=== PATIENT | male | born 2000 | race Caucasian/White ===

== ENCOUNTER 2023-10-14 11:34 | Outpatient (CLI) | payer BC, SELFPAY ==
--- NOTE | 2023-10-14 13:25 | W.ANESCHARGE ---
Anesthesia Charges Start Date/Time Anesthesia Start Date: 10/14/23 Anesthesia Start Time: 13:00 Stop Date/Time Anesthesia Stop Date: 10/14/23 Anesthesia Stop Time: 13:25
== END 2023-10-14 11:35 | disposition home or self-care (01) ==
LOC: OP CLINIC 11:35
PROVIDERS: PCP Physician Assistant; Visit Provider Internal Medicine Gastroenterology
DX: R19.7 Diarrhea, unspecified (principal); R10.13 Epigastric pain; K30 Functional dyspepsia; R11.2 Nausea with vomiting, unspecified
CPT/HCPCS: 00731; 43239; 88305; J2704

== ENCOUNTER 2024-03-20 14:46 | Emergency (ER) | payer BC, SELFPAY ==
[2024-03-20 14:48] VITALS: BP 154/84; PULSE 91; RESP 14; TEMP 37; O2SAT 97; BMI 27.1
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
--- OUTSIDE RECORDS SUMMARY | 2024-03-20 15:43 | XMS_ITS | Continuity of Care Document ---
Author Organization [facility] Address [address] [address] [place] [address] Phone Care Team Providers Care Assembler Wire Group Name Role Phone Ann Marie Lew CRNA Unavailable Unavailable Allergies, Adverse Reactions, Alerts Substance Reaction Status Criticality No Known Allergies Active No Inform ation Medications Medication Instructions Dosage Effective Dates (start - stop) Status Comments Advil 200 mg tablet take 1 tablet by ora l route every 6 hours as needed with food 200 MG - Active Tylenol 325 mg tablet take 2 tablet by o ral route every 6 hours as needed 650 MG - Active Protonix 40 mg tablet,delayed release take 1 tablet by oral route every day 30-60 minutes before breakfast - Active Procedures Procedure Date Colonoscopy Flex; Dx (sep Pro) 21 Offic/outpt E&m Estab Mod-hi 2 Routine Serum Collection Ugi Endo; W/bx 1/mx Level Iv-surg Path Gross/micro Advance Directives Directive Yes / No Effective Date File Name No Information Encounters Encounter Description Practice Location Reason(s) For Visit Diagnoses Date Provider Providers Copied on Encounter [facility], [address] [address], [place], [place], [id number], [place] tel:[phone] [facility][1] [facility] No Information Vipin Jesus. [address] [facility], [place], [place], [address], [place]. tel:[phone] Referring Provider: Henrietta Cueva MD, [address] [facility] [address], [place], [address] . tel:[phone] [facility], [address] [address], [place], [place], [address], [place] tel:[phone] [facility][1] [facility] Right lower quadrant painRight lower quadrant pain Dec- 1 Hammad Shrestha. [address] [facility], [address], [place], [place], [address], [place]. tel:[phone] Referring Provider: Marco KIDD, [address] [place], [address]. tel:[phone] Offic/outpt E&m Estab Mod-hi 2 [facility], [address] [address], [place], [place], [address], [place] tel:[phone] [facility] GI Symptoms or Concerns (chief complaint) RLQ abdominal painChange in bowel habits 1 Owen Barbosa. [address] [facility], [facility] [address], [place], [place], [address], [place]. tel:[phone] Referring Provider: Marco KIDD, [address] [place], [address]. tel:[phone] [facility], [address] [address], [place], [place], [address], [place] tel:[phone] [facility] No Information 1 Karlos Blanchard. [address] [facility], [facility] [address] [place], [place], [address], [place]. tel:[phone] [facility], [address] [address], [place], [place], [address], [place] tel:[phone] [facility][1] [facility] Acute gastric erosionDisease of stomach and duodenum, unspecified 1 Karlos Blanchard. [address] [facility], [facility] [address] [place], [place], [address], [place]. tel:[phone] Referring Provider: Marco KIDD, [address] [place] [address], [address]. tel:[phone] [facility], [address] [address], [place], [id number], tel:[phone] No Information No Information Referring Provider: Marco KIDD, [address] [place], [address]. tel:[phone] Family History Family Member Type Diagnosis Age At Onset Father Problem (finding) Heart Attack Problem (finding) Family history of Stoma ch Ulcers Problem (finding) Family history of malignant neoplasm of lung Immunizations Vaccine Date Status Comments influenza virus vaccine, unspecified formulation administered Note: [facility] bi-di rectional interface ; Source: Other Registry meningococcal oligosaccharid e (groups A, C, Y and W-135) diphtheria toxoid conjugate vaccine (MCV4O) administered Note: [facility] bi-direct ional interface ; Source: Other Registry tetanus toxoid, reduced diphtheria toxoid, and acellular pertussis vaccine, adsorbed administered Note: [facility] b i-directional interface ; Source: Other Registry Havrix pediatric administered Note: [facility] bi-directional interface ; Source: Other Registry meningococcal polysaccharide (groups A, C, Y and W-135) diphtheria toxoid conjugate vaccine (MCV4P) administered Note: [facility] bi-direct ional interface ; Source: Other Registry Havrix pediatric administered Note: [facility] bi-directional interface ; Source: Other Registry varicella virus vaccine administered Note : [facility] bi-directional interface ; Source: Other Registry Influenza, seasonal, injectable administe red Note: [facility] bi- directional interface ; Source: Other Registry Payers Payer name Insurance type Covered alliance party ID Authoriza tion(s) [employer] Of [facility] [id number] Social History Type Description Quantity Date Captured Comments Sex Male Smoking Status No Information Chief Complaint And Reason For Visit No Information Reason For Referral Reason For Referral No Information Plan Of Treatment Date Type Action Status Referral Ordered: Colonoscopy Appointment date/timeframe: 01/02/2021 ordered History Of Present Illness Encounter Date Complaint History Of Prese nt Illness GI Symptoms or Concerns Mr. Nicole son is a 20-year-old gentleman who had a clinic visit with me today for concerns regarding right lower quadrant pain.Mr. Talbert has been experiencing pain in the right lower quadrant region for the last 1 month or so. He reports the pain comes on typically with movement and activities, particularly if he stands up from a sitting position or twists around. This leads to significant throbbing pain in the area that makes him feel like his stomach is churning. He also gets a alvarez of blood into his head and he gets throbbing headaches as well as sinus pressure. He has had no nausea, vomiting, or changes in appetite related with these symptoms. Does report that he was constipated for a while, but now his bowel movements are a little bit loose than before.He has had testing for this through his primary care physician's office including LFTs, CBC, sedimentation rate, C-reactive protein, and lipase levels, all of which have been normal. He had an EGD done with Dr. Laura Functional Status Date Functional Assessmen t No Information Instructions Date Instruction Additional Infor alyssa 1. Check thyroid caceres el.2. Obtain colonoscopy with terminal ileum evaluation.3. Try lidocaine patch to help with pain.If colonoscopy shows an etiology for his symptoms, we will set up a followup visit for further treatment and management. However, if colonoscopy is negative, we would recommend that he continue followup with his primary care doctor for investigation into musculoskeletal causes of his symptoms and treatment as necessary. Related to RLQ abdominal pain Assessments Type Assessment Date No Information Patient Care Teams Name Effective Dates (start - stop) Status Members No Information
--- OUTSIDE RECORDS SUMMARY | 2024-03-20 15:44 | XMS_ITS | Patient Health Record ---
Author Organization [facility] Address [address] [place] [address] [address] [place] [address] Care Team Providers Care Real Estate Marketing Coordinator Name Role Phone Massimo Butler Primary Care Provider Melanie Mattson Unavailable Unavailable Allergies Allergen (clinical drug ingredient) Drug/Non Drug Allergy documented on EMR Reaction Allergy Type Onset Date Status Grape Seed anaphylaxis Drug Allergy Acti ve gabapentin Gabapentin excessive sedation Drug Allergy Active Reason For Referral No Information Medications Medication SIG (Take, Route, Frequency, Duration) Notes Start Date End Date Status Meloxicam 15 MG 1 tablet Orally with food Once a day for 30 days Active hydrOXYzine Pamoate 25 MG 2 capsules Ora lly every 6 hrs Active Social History Tobacco Use/Smoking: Question Answer Notes Additional Findings: Tobacco User e-Cigarette Alcohol Screen Question Answer Notes Did you have a drink containing alcohol in the p ast year? No Points 0 Interpretation Negative Problems Problem Type SNOMED Code ICD Code Onset Dates Problem Status W/U Status Risk Notes Problem Chronic pain (81999803) Other chronic pain (G89.29) Active confirmed Problem Cervical spondylosis without myelopathy (420609846) Spondylosis without myelopathy or radiculopathy, cervical region (M47.812) Active confirmed Problem Pain in thoracic spine (652190736) Pain in thoracic spine (M54.6) Active confirmed Problem Occipital neuralgia (86102260) Occipital neuralgia (M54.81) Active confirmed Problem Muscle pain (77069552) Myalgia, other site (M79.18) Active confirmed Problem Cervicalgia (65200510) Cervicalgia (M54.2) Active confirmed Problem Headache (05389368) Headache (R51.9) Active confirmed Encounters Encounter Location Date Provider Diagnosis [place] [address] [facility] [address] [address] 12/02/2023 Massimo Butler Plan Of Treatment No Information Insurance Providers Payer Name Payer Address Payer Phone Subscriber Number Group Number Insured Name Patient Relationship to Insured Coverage Start Date Coverage End Date [employer] [id number] [place] [address] [id number] [address], Employee [facility] [address] [address] [place] [address] [id number] Giovany Talbert Self - patient is the insured 0 Medical (General) History Medical History History ICD Code Acid reflux Anxiety headaches concussion (11/2021) Surgical History Surgery Date(Month/Year) Hospitalization History Reason Date(Month/Year) ER for headache 05/2022
--- OUTSIDE RECORDS SUMMARY | 2024-03-20 15:44 | XMS_ITS | Clinical Summary ---
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 02/11/2024 7:21 PM [facility] ALK PHOSPHATASE 62 40 - 129 IU/L 02/11/2024 7:21 PM [facility] ALT (SGPT) <5(L) 10 - 50 IU/L 02/11/2024 7:21 PM [facility] AST (SGOT) 16 10 - 50 IU/L 02/11/2024 7:21 PM [facility] Blood BLOOD SPECIMEN / Unknown Butterfly / Unknown 02/11/2024 6:59 PM CDT 02/11/2024 7:00 PM CDT Mahesh KIDD CHEMISTRY [facility] [address] [address] * (ABNORMAL) CBC WITH AUTO DIFFERENTIAL (02/11/2024 6:58 PM CDT) WHITE BLOOD COUNT 6.3 4.5 - 11.0 thou/cu mm 02/11/2024 7:03 PM [facility] RED BLOOD COUNT 5.32 4.30 - 5.90 mil/cu mm 02/11/2024 7:03 PM [facility] HEMOGLOBIN 14.1 13.5 - 17.5 g/dL 02/11/2024 7:03 PM [facility] HEMATOCRIT 44.2 37.0 - 53.0 % 02/11/2024 7:03 PM [facility] MCV 83 80 - 100 fL 02/11/2024 7:03 PM [facility] MCH 26.5 26.0 - 34.0 pg 02/11/2024 7:03 PM [facility] MCHC 31.9(L) 32.0 - 36.0 g/dL 02/11/2024 7:03 PM [facility] RDW 13.2 11.5 - 15.5 % 02/11/2024 7:03 PM [facility] PLATELET COUNT 206 140 - 440 thou/cu mm 02/11/2024 7:03 PM [facility] MPV 9.9 6.5 - 11.0 fL 02/11/2024 7:03 PM [facility] % NEUT 57.7 % 02/11/2024 7:03 PM [facility] % LYMPH 29.7 % 02/11/2024 7:03 PM [facility] % MONO 9.4 % 02/11/2024 7:03 PM [facility] % EOS 2.9 % 02/11/2024 7:03 PM [facility] % BASO 0.3 % 02/11/2024 7:03 PM [facility] ABSOLUTE NEUTROPHILS 3.6 1.7 - 7.0 thou/cu mm 02/11/2024 7:03 PM [facility] ABSOLUTE LYMPHOCYTES 1.9 0.9 - 2.9 thou/cu mm 02/11/2024 7:03 PM [facility] ABSOLUTE MONOCYTES 0.6 <0.9 thou/cu mm 02/11/2024 7:03 PM [facility] ABSOLUTE EOSINOPHILS 0.2 <0.5 thou/cu mm 02/11/2024 7:03 PM [facility] ABSOLUTE BASOPHILS 0.0 <0.3 thou/cu mm 02/11/2024 7:03 PM CDT [facility] Blood BLOOD SPECIMEN / Unknown Butterfly / Unknown 02/11/2024 6:58 PM CDT 02/11/2024 7:00 PM CDT Mahesh KIDD HEMATOLOGY Performing Organization Address [facility] Co de Phone Number [facility] [address] [phone] * COVID-19 MOLECULAR (02/11/2024 6:19 PM CDT) COVID 19 [place] MOLECULAR Not detected Not detected 02/11/2024 6:54 PM CDT [facility] TESTING LABORATORY [facility] 02/11/2024 6:54 PM CDT [facility] Comment:Specimen submitted t o [facility] for testing. Other SPECIMEN FROM NASOPHARYNGEAL STRUCTURE / Unknown Non-Blood / Unknown 02/11/2024 6:19 PM CDT 02/11/2024 6:32 PM CDT Mahesh KIDD MICROBIOLOGY Performing Organization Address [facility] Co de Phone Number [facility] [address] [phone] from Last 3 Months Care Teams Model Maker Relationship Specialty Start Date End Date Melanie Mattson MD [address] [place] [address] [place] [address] PCP - General Family Practice 02/08/24
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
--- OUTSIDE RECORDS SUMMARY | 2024-03-20 15:44 | XMS_ITS | Data Portability ---
Author Organization [place] [facility], [employer] Address [address] [facility] [address] Assessment No assessment recorded. Plan of Treatment Reminders Order Date Submit Date Provider Last Modified By Organization Details Last Modified Time Details Appointments None record ed. Lab None record ed. Referral None record ed. Procedures None record ed. Surgeries None record ed. Imaging None record ed. Medication Orders None record ed. Patient TargetsNo targets recorded. Patient InstructionsNo instructions recorded. Reason for Referral None Reported. 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; Original Code: 823828255 Original Codesystem : SNOMED CT Classif ication: Medical Co nfirmation Status: Confirmed Not Available [facility] 3 08:55:47 Injury of lower leg 269622310 Active 2018 Injury of lower leg; Original Code: 271121880 Original Codesystem : SNOMED CT Classif ication: Medical Co nfirmation Status: Confirmed Not Available [facility] 3 08:55:47 Fracture of fibula 27865862 Active 2021 Fracture of fibula; Original Code: 989180702 Original Codesystem : SNOMED CT Classif ication: Medical Co nfirmation Status: Confirmed Not Available [facility] 3 08:55:49 Injury of Achilles tendon 838364064 Active 2018 Injury of Achilles tendon; Original Code: 1489904638 Original Codesystem : SNOMED CT Classif ication: Medical Co nfirmation Status: Confirmed Not Available [facility] 3 08:55:49 Subluxati on of ankle joint 476907733 Active 2021 Subluxatio n of ankle joint; Original Code: 658828042 Original Codesystem : SNOMED CT Classif ication: Medical Co nfirmation Status: Confirmed Not Available [facility] 3 08:55:50 Problem Notes None recorded. Medical Equipment None Reported. Medications Name Sig Start Date Stop Date Status Note LastModified by Organization Details LastModified Time amoxicillin 500 mg capsule active Not Available Not Available Not Available albuterol sulfate 2.5 mg/3 mL (0.083 %) solution for nebulization USE 1 VIAL IN NEBULIZER EVERY 4 HOURS NEEDED FOR COUGH - FIRST CHOICE active Not Available Not Available No t Available azithromycin 250 mg tablet TAKE 2 TABLETS BY MOUTH ON DAY 1, AND THEN TAKE 1 TABLET BY MOUTH ONCE A DAY ON DAY 2 THROUGH DAY 5 active Not Available Not Available No t Available prednisone 20 mg tablet TAKE 2 TABLETS BY MOUTH ONCE DAILY WITH A MEAL FOR 5 DAYS active Not Available Not Available No t Available omeprazole 40 mg capsule,delay ed release active Not Available Not Available N ot Available tramadol 50 mg tablet active Not Available Not Available No t Available meclizine 25 mg tablet active Not Available Not Available No t Available benzonatate 100 mg capsule TAKE 1 CAPSULE BY MOUTH THREE TIMES DAILY NEEDED FOR COUGH active Not Available Not Available No t Available gabapentin 100 mg capsule active Not Available Not Available Not Available ibuprofen 600 mg tablet TAKE 1 TABLET BY MOUTH EVERY 6 HOURS NEEDED FOR PAIN active Not Available Not Available No t Available ondansetron 4 mg disintegratin g tablet active Not Available Not Available Not Available doxycycline hyclate 100 mg tablet active Not Available Not Available No t Available amoxicillin 875 mg-potassium clavulanate 125 mg tablet TAKE 1 TABLET BY MOUTH EVERY 12 HOURS FOR 7 DAYS active Not Available Not Available No t Available chlorhexidine gluconate 0.12 % mouthwash RINSE WITH 15ML FOR 30 SECONDS AND SPIT, USE TWICE DAILY AFTER BRUSHING AND FLOSSING . FOR 7 DAYS active Not Available Not Available N ot Available Vitals None Recorded Social History None recorded. Functional Status None recorded. Mental Status None recorded. Family History Nothing Reported. Medical History No medical history recorded. Past Encounters Encounter ID Performer Location Encounter Start Date Encounter Closed Date Diagnosis/Indication Diagnosis SNOMED-CT Code Diagnosis ICD10 Code [id number] Anil [facility] [address] [place] [address] 06/27/2022 09:58:00 07/03/2022 10:37:37 Injury of Achilles tendon 285219428 S86.011D Injury of nerves at ankle and foot level 878238177 S94.91XD Contusion of right lower leg 0403527958 3510592 S80.11XD Health Concerns Section Related Observation LastModified by Organization Detai ls LastModified Time None Recorded Concern Status LastModified by Organization Details LastModified Time None Recorded Advance Directives Directive None Recorded Payers None recorded.
== END 2024-03-20 16:27 | disposition home or self-care (01) ==
PROVIDERS: Emergency Provider Emergency Medicine; PCP Physician Assistant
DX: M54.2 Cervicalgia (principal)
CPT/HCPCS: 99282; 99283

== ENCOUNTER 2024-04-27 15:24 | Emergency (ER) | payer BC, SELFPAY ==
[2024-04-27 15:26] VITALS: BP 148/74; PULSE 103; RESP 16; TEMP 37.3; O2SAT 97; BMI 27.1
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
--- OUTSIDE RECORDS SUMMARY | 2024-04-27 16:49 | XMS_ITS | Data Portability ---
Author Organization [place] [facility] [employer] Address [address] [facility] [place] [place] [address] Assessment No assessment recorded. 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; Original Code: 809797951 Original Codesystem : SNOMED CT Classif ication: Medical Co nfirmation Status: Confirmed Not Available [facility] 3 08:55:47 Injury of lower leg 850981805 Active 2018 Injury of lower leg; Original Code: 092133092 Original Codesystem : SNOMED CT Classif ication: Medical Co nfirmation Status: Confirmed Not Available [facility] 3 08:55:47 Fracture of fibula 14974132 Active 2021 Fracture of fibula; Original Code: 260962823 Original Codesystem : SNOMED CT Classif ication: Medical Co nfirmation Status: Confirmed Not Available [facility] 3 08:55:49 Injury of Achilles tendon 688598540 Active 2018 Injury of Achilles tendon; Original Code: 1699810617 Original Codesystem : SNOMED CT Classif ication: Medical Co nfirmation Status: Confirmed Not Available [facility] 3 08:55:49 Subluxati on of ankle joint 321126701 Active 2021 Subluxatio n of ankle joint; Original Code: 913362064 Original Codesystem : SNOMED CT Classif ication: Medical Co nfirmation Status: Confirmed Not Available [facility] 3 08:55:50 Problem Notes None recorded. Medical [...] SNOMED-CT Code Diagnosis ICD10 Code 1208 [facility] Main Office [address] [place] [address] 06/27/2022 09:58:00 07/03/2022 10:37:37 Injury of Achilles tendon 899653713 S86.011D Injury of nerves at ankle and foot level 012182864 S94.91XD Contusion of right lower leg 9000113219 9228204 S80.11XD Health Concerns Section Related Observation LastModified by Organization Detai ls LastModified Time None Recorded Concern Status LastModified by Organization Details LastModified Time None Recorded Advance Directives Directive None Recorded Payers None recorded.
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
[2024-04-27 17:00] LABS: Basophils Absolute Auto 0.02 K/uL (0.00-0.30); Basophils Percent Auto 0.3 % (0.0-3.0); Eosinophils Absolute Auto 0.11 K/uL (0.00-0.50); Eosinophils Percent Auto 1.8 % (0.0-7.0); Hemoglobin* 15.3 gm/dL (13.5-17.5); Immature Granulocytes Abs Auto 0.01 K/uL (0.00-0.30); Immature Granulocytes Pct Auto 0.2 %; Lymphocytes Absolute Auto 1.95 K/uL (0.90-2.90); Lymphocytes Percent Auto 31.6 % (20-44); Mean Corpuscular HGB Conc 33 gm/dL (32-36); Mean Corpuscular Hemoglobin 26 pg (26-34); Mean Corpuscular Volume 81 fL (80-100); Monocytes Percent Auto 6.1 % (0.0-11.0); Neutrophils Absolute Auto 3.71 K/uL (1.7-7.0); Platelet Count* 189 K/uL (140-440); RDW Coefficient of Variation % 13.1 % (11.5-15.5); Red Blood Count 5.83 m/uL (4.30-5.90); Slide Review Reflex No; White Blood Count* 6.18 K/uL (4.50-11.00)
[2024-04-27 17:01] LABS: Mono Screen* Negative (Negative)
[2024-04-27 17:11] LABS: Chloride* 103 mmol/L (96-114)
[2024-04-27 17:12] LABS: Albumin* 4.6 g/dL (3.3-5.0); Potassium* 3.8 mmol/L (3.6-5.1); Sodium* 138 mmol/L (135-149)
[2024-04-27 17:14] LABS: Creatinine* 0.9 mg/dL (0.5-1.5); Est. Creatinine Clearance* 137.72; Estimated Glomerular Filt Rate 122 ml/min
[2024-04-27 17:15] LABS: Alanine Aminotransferase* 22 U/L (4-50); Alkaline Phosphatase* 56 U/L (40-150); Anion Gap 9 mEq/L (7-15); Aspartate Amino Transferase* 24 U/L (12-35); Bilirubin Total* 0.6 mg/dL (0.1-1.5); Blood Urea Nitrogen* 12 mg/dL (5-24); Carbon Dioxide* 26 mmol/L (20-32); Glucose* 94 mg/dL (60-115); Total Protein* 7.7 g/dL (6.0-8.3)
[2024-04-27 17:16] LABS: Calcium* 9.4 mg/dL (8.4-10.6)
[2024-04-27] MEDS: KETOROLAC 15 MG/ML inj IVP (17:16)
[2024-04-27] MEDS: diphenhydrAMINE 50 MG/ML inj 12.5 MG IVP (17:18)
[2024-04-27 17:21] LABS: Strep A DNA Probe* NOT DETECTED (Not Detectd)
[2024-04-27 17:22] LABS: C Reactive Protein* < 0.5 mg/dL (0.5-1.0)
[2024-04-27 17:35] LABS: PCR FLU A Negative PCR FLU A (Negative); PCR FLU B Negative PCR FLU B (Negative); SARS PCR* Negative SARS-CoV-2 (Negative)
== END 2024-04-27 18:30 | disposition home or self-care (01) ==
PROVIDERS: Emergency Provider Emergency Medicine; PCP Physician Assistant
DX: R51.9 Headache, unspecified (principal); M79.10 Myalgia, unspecified site
CPT/HCPCS: 36415; 80053; 85025; 86140; 86308; 87631; 87651; 96374; 96375; 99283; 99284; J1200; J1885